=== PATIENT | female | born 1985 | race Caucasian/White ===

== ENCOUNTER 2018-03-04 10:13 | Emergency (ER) | payer OTHER ==
[2018-03-04] MEDS ORDERED: NA CHLORIDE 0.9% 1,000 ML ONE (11:02)
[2018-03-04] MEDS ORDERED: ONDANSETRON 4 MG/2 ML VIAL ONE ×2 (11:02→13:47)
[2018-03-04 11:17] LABS: Absolute Lymphocytes (CBC) 1.3 K/uL (0.7-4.9); Absolute Monocytes 0.3 K/uL (0.1-1.3); Absolute Neutrophil 5.2 K/uL (1.8-8.0); Basophils % 2.3 % (0-1.3); Hematocrit 43.1 % (36.0-45.0); MCH 29.4 pg (27.0-35.0); MCV 83.8 fL (80-100); MPV 8.6 fL (7.6-11.3); Monocytes % 4.2 % (3.3-12.3); RBC Red Blood Cell Count 5.15 M/uL (3.86-4.86)
[2018-03-04 11:22] LABS: ALT/SGPT 41 U/L (12-78); AST/SGOT 17 U/L (15-37); Albumin 4.1 g/dL (3.4-5.0); Alkaline Phosphatase 84 U/L (45-117); BUN Blood Urea Nitrogen 12 mg/dL (7-18); Bicarbonate 22 mmol/L (21-32); Bilirubin Direct < 0.1 mg/dL (0-0.2); Bilirubin Total 0.3 mg/dL (0.2-1.0); Glucose Level 109 mg/dL (74-106); Lipase 201 U/L (73-393); Potassium 4.1 mmol/L (3.5-5.1); Protein, Total 7.8 g/dL (6.4-8.2); Sodium Level 140 mmol/L (136-145)
[2018-03-04 12:32] LABS: Urine Blood NEGATIVE (NEG); Urine Glucose NEGATIVE (NEG); Urine Protein NEGATIVE (NEG)
[2018-03-04] MEDS ORDERED: MORPHINE 4 MG/ML SYR ONE (12:32)
--- NOTE | 2018-03-04 13:18 | RAD REPORT ---
EXAM DESCRIPTION: CT - Abdomen Pelvis W Contrast - 03/04/2018 1:01 pm CLINICAL HISTORY: Right-sided abdominal pain COMPARISON: June 2017 TECHNIQUE: Biphasic, helical CT imaging of the abdomen and pelvis was performed following 100 ml non -ionic IV contrast. No oral contrast administered. All CT scans are performed using dose optimization technique as appropriate and may include automated exposure control or mA/KV adjustment according to patient size. FINDINGS: No suspicious findings in the lung bases. Liver shows diffuse fatty infiltration pattern. No focal liver lesions seen. Spleen and pancreas with out acute finding. Gallbladder and biliary tree are also without suspicious finding. Symmetric renal function is seen with no hydronephrosis or suspicious renal mass. No pyelonephritis o r acute renal parenchymal process. No urinary bladder abnormality. Uterus and ovaries show no suspici ous findings. Cysts are present in both ovaries. Largest cyst is on the right measuring 3.[address] rupture or hemorrhage findings. No dilated bowel loops or bowel wall thickening. No appendicitis. Fluid-filled small bowel loops and fluid filled colon noted likely reflecting nonspecific gastroenteritis. No free air, free fluid or in flammatory stranding. No hernia, mass or bulky lymphadenopathy. No adrenal abnormality. No suspicious bony findings. IMPRESSION: Large and small bowel pattern suggests a nonspecific enteritis. No obstruction, appendic itis, free air or surgically emergent finding. No acute or CUSTOMER EXPERIENCE STRATEGIST process. A right ovarian cyst is present 3.3 cm on the right. No cyst rupture or h emorrhage.
[2018-03-04] MEDS ORDERED: DICYCLOMINE HCL 10 MG CAP ONE (13:47)
[2018-03-04] MEDS ORDERED: DICYCLOMINE HCL 20 MG/2 ML AMP IM ONE (14:01)
[2018-03-04] MEDS ORDERED: PROMETHAZINE 25 MG/ML VIAL ONE (14:42)
[2018-03-04] MEDS ORDERED: FENTANYL CITR 100 MCG/2 ML ONE (14:43)
--- NOTE | 2018-03-04 14:56 | ER ---
Nurse's Notes [facility] Name: Leonela Garcia Age: 32 yrs Sex: Female : 1985 Arrival Date: 03/04/2018 Time: 10:17 Bed 14 Private MD: out of town, doctor Diagnosis: Noninfective gastroenteritis and colitis, unspecified Presentation: 03/04 10:32 Presenting complaint: Patient states: n/v/d since this morning. c/o indigestion. sv Transition of care: patient was not received from another setting of care. Onset of symptoms was March 04, 2018. Care prior to arrival: None. 10:32 Method Of Arrival: Ambulatory sv 10:32 Acuity: LENA 3 sv 10:45 Risk Assessment: Do you want to hurt yourself or someone else? Patient reports no em desire to harm self or others. Initial Sepsis Screen: Does the patient meet any 2 criteria? No. Patient's initial sepsis screen is negative. Does the patient have a suspected source of infection? No. Patient's initial sepsis screen is negative. Triage Assessment: 10:32 General: Appears uncomfortable, well developed, Behavior is cooperative. Pain: sv Complains of pain in abdomen Pain currently is 7 out of 10 on a pain scale. Quality of pain is described as crampy, Pain began this morning Is intermittent. Neuro: Level of Consciousness is awake, alert, obeys commands, Oriented to person, place, time, situation, Moves all extremities. Full function Gait is steady, Speech is normal. Respiratory: Respiratory effort is even, unlabored, Respiratory pattern is regular, symmetrical. GI: Reports cramping, diarrhea, intolerance of food, nausea, vomiting. 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 - Social history:: Smoking status: Patient/guardian denies using tobacco. - Ebola Screening: : No symptoms or risks identified at this time. Screenin:45 Abuse screen: Denies threats or abuse. Nutritional screening: No deficits noted. em Tuberculosis screening: No symptoms or risk factors identified. Fall Risk None identified. Assessment: 10:45 General: Appears in no apparent distress. uncomfortable, Behavior is calm, cooperative. em Pain: Complains of pain in right upper quadrant and left upper quadrant Pain currently is 7 out of 10 on a pain scale. Quality of pain is described as crampy, Pain began 2 hours ago. Neuro: Level of Consciousness is awake, alert, obeys commands, Oriented to person, place, time, situation. Cardiovascular: Capillary refill < 3 seconds Patient's skin is warm and dry. Respiratory: Airway is patent Respiratory effort is even, unlabored, Respiratory pattern is regular, symmetrical. GI: Abdomen is round non-distended, Bowel sounds present X 4 quads. Abd is soft X 4 quads Abdomen is tender to palpation in right upper quadrant and left upper quadrant. : Urine is clear. EENT: No signs and/or symptoms were reported regarding the EENT system. Derm: Skin is intact, Skin is pink, warm \T\ dry. Musculoskeletal: Capillary refill < 3 seconds, Range of motion: intact in all extremities. 10:45 Reassessment: I agree with assessment completed by Tulio Lloyd LVN . GI: Reports aa5 diarrhea, nausea, vomiting. 12:17 Reassessment: Patient appears in no apparent distress at this time. Patient and/or em family updated on plan of care and expected duration. Pain level reassessed. Patient is alert, oriented x 3, equal unlabored respirations, skin warm/dry/pink. Patient states symptoms have improved. 13:20 Reassessment: Patient appears in no apparent distress at this time. Patient and/or em family updated on plan of care and expected duration. Pain level reassessed. Patient is alert, oriented x 3, equal unlabored respirations, skin warm/dry/pink. pt c/o nausea, provider notified, new medication orders received. 14:25 Reassessment: Patient appears in no apparent distress at this time. Patient and/or em family updated on plan of care and expected duration. Pain level reassessed. Patient is alert, oriented x 3, equal unlabored respirations, skin warm/dry/pink. pt still appears uncomfortable, pt c/o nausea and pain, rates pain 7/10, provider notified. 15:21 Reassessment: Patient appears in no apparent distress at this time. Patient and/or em family updated on plan of care and expected duration. Pain level reassessed. Patient is alert, oriented x 3, equal unlabored respirations, skin warm/dry/pink. pt refused pain medication, rates pain 0/10 Patient states feeling better. Patient states symptoms have improved. Vital Signs: 10:32 BP 120 / 71; Pulse 86; Resp 22; Temp 96; Pulse Ox 96% ; Weight 90.72 kg; Height 5 ft. 5 sv in. (165.10 cm); Pain 7/10; 11:30 BP 109 / 87; Pulse 72; Resp 16; Pulse Ox 99% on R/A; em 12:16 Temp 97.4(O); mh5 12:17 BP 121 / 83; Pulse 72; Resp 18; Temp 97.8(O); Pulse Ox 100% ; mh5 13:30 BP 131 / 96; Pulse 70; Resp 18; Pulse Ox 99% on R/A; em 14:36 BP 116 / 87; Pulse 76; Resp 99; Pulse Ox 100% on R/A; Pain 7/10; em 15:17 BP 110 / 73; Pulse 81; Resp 17; Pulse Ox 99% on R/A; Pain 0/10; em 10:32 Body Mass Index 33.28 (90.72 kg, 165.10 cm) sv ED Course: 10:17 Patient arrived in ED. mr 10:18 out of town, doctor is Private Physician. mr 10:32 Triage completed. sv 10:34 Arm band placed on. sv 10:35 Tulio Lloyd LVN is Primary Nurse. em 10:35 Anthony De Anda PA is PHCP. jmm 10:35 Saulo Rodriguez MD is Attending Physician. jmm 10:45 Patient has correct armband on for positive identification. Placed in gown. Bed in low em position. Call light in reach. Side rails up X2. Adult w/ patient. 11:00 Initial lab(s) drawn, by me, sent to lab. Inserted saline lock: 20 gauge in right em antecubital area, using aseptic technique. Blood collected. 12:01 Urine collected: clean catch specimen, clear. em 13:00 CT completed. Patient moved to CT via wheelchair. Patient moved back from CT. cw1 13:01 CT Abd/Pelvis - W/Contrast In Process Unspecified. EDMS 15:21 No provider procedures requiring assistance completed. IV discontinued, intact, em bleeding controlled, No redness/swelling at site. Pressure dressing applied. Administered Medications: 10:54 Drug: Zofran 4 mg Route: IVP; Site: right antecubital; aa5 11:58 Follow up: Response: No adverse reaction; Nausea is decreased em 10:55 Drug: NS 0.9% 1000 ml Route: IV; Rate: 1 bolus; Site: right antecubital; em 11:59 Follow up: IV Status: Completed infusion; IV Intake: 1000ml em 12:32 Drug: morphine 4 mg Route: IVP; Site: right antecubital; aa5 13:45 Follow up: Response: No adverse reaction; Pain is decreased em 13:45 Drug: Zofran 4 mg Route: IVP; Site: right antecubital; em 14:27 Follow up: Response: No adverse reaction; Nausea unchanged em 14:01 Not Given (Other Intervention Used): Bentyl 20 mg PO once em 14:01 Drug: Bentyl 20 mg Route: IM; Site: left deltoid; em 14:27 Follow up: Response: No adverse reaction; Pain is unchanged, physician notified em 14:44 Drug: Promethazine 12.5 mg Route: IVP; Site: right antecubital; aa5 15:26 Follow up: Response: No adverse reaction; Marked relief of symptoms em 15:26 Not Given (Patient Refused): fentaNYL (PF) 50 mcg IVP once em Intake: 11:59 IV: 1000ml; Total: 1000ml. em Outcome: 14:55 Discharge ordered by MD. daniel 15:21 Discharged to home ambulatory, with family. em 15:21 Condition: good 15:21 Discharge instructions given to patient, family, Instructed on discharge instructions, follow up and referral plans. medication usage, Demonstrated understanding of instructions, follow-up care, medications, Prescriptions given X 3. 15:34 Patient left the ED. em Signatures: Dispatcher [employer] Rachele White, Anthony Griffin RN, PA PA jmm Rivera, Mary mr Gabino, Tulio, FISHER DIVER NET FISHER DIVER NET em Sylvie Thakur RN RN Yael Nuñez1 Lashawn Worley 5 Corrections: (The following items were deleted from the chart) 12:20 12:17 Temp 97.8F Oral; em mh5
--- NOTE | 2018-03-04 14:56 | EDPHYS ---
Physician Documentation [facility] Name: Leonela Garcia Age: 32 yrs Sex: Female : 1985 Arrival Date: 03/04/2018 Time: 10:17 Bed 14 Private MD: out of town, doctor ED Physician Saulo Rodriguez HPI: 03/04 10:36 This 32 yrs old Female presents to ER via Ambulatory with complaints of jmm Abdominal Pain, Vomiting/Diarrhea. 10:36 The patient presents with abdominal pain in the epigastric area. Onset: The jmm symptoms/episode began/occurred gradually. Associated signs and symptoms: Pertinent positives: diarrhea, vomiting. This is a 32 year old female with a history of ovarian cysts that presents to the ED with vomiting and diarrhea beginning approx 1 day ago. States her children bj sick with cough and congestion. 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 denies recent travel, denies recent abx use. . 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 - Social history:: Smoking status: Patient/guardian denies using tobacco. - Ebola Screening: : No symptoms or risks identified at this time. ROS: 10:36 Constitutional: Negative for fever, chills, and weight loss, Eyes: Negative for injury, jmm pain, redness, and discharge, ENT: Negative for injury, pain, and discharge, Cardiovascular: Negative for chest pain, palpitations, and edema, Respiratory: Negative for shortness of breath, cough, wheezing, and pleuritic chest pain. 10:36 : Negative for injury, bleeding, discharge, and swelling, MS/Extremity: Negative for injury and deformity, Skin: Negative for injury, rash, and discoloration, Neuro: Negative for headache, weakness, numbness, tingling, and seizure. 10:36 Abdomen/GI: Positive for abdominal pain, nausea and vomiting, diarrhea. 10:36 All other systems are negative. Exam: 10:36 Constitutional: The patient appears in no acute distress, alert, awake. jmm 11:08 Constitutional: This is a well developed, well nourished patient who is awake, alert, jmm and in no acute distress. Head/Face: atraumatic. Eyes: EOMI, no conjunctival erythema appreciated ENT: Moist Mucus Membranes Neck: Trachea midline, Supple Chest/axilla: Normal chest wall appearance and motion. Cardiovascular: Regular rate and rhythm. No edema appreciated Respiratory: Normal respirations, no respiratory distress appreciated 11:08 Back: Normal ROM Skin: General appearance color normal MS/ Extremity: Moves all extremities, no obvious deformities appreciated, no edema noted to the lower extremities Neuro: Awake and alert, normal gait Psych: Behavior is normal, Mood is normal, Patient is cooperative and pleasant 11:08 Abdomen/GI: Inspection: abdomen appears normal, Bowel sounds: normal, Palpation: soft, mild abdominal tenderness, in the right upper quadrant and left upper quadrant. 11:08 Back: ROM is normal. Vital Signs: 10:32 BP 120 / 71; Pulse 86; Resp 22; Temp 96; Pulse Ox 96% ; Weight 90.72 kg; Height 5 ft. 5 sv in. (165.10 cm); Pain 7/10; 11:30 BP 109 / 87; Pulse 72; Resp 16; Pulse Ox 99% on R/A; em 12:16 Temp 97.4(O); mh5 12:17 BP 121 / 83; Pulse 72; Resp 18; Temp 97.8(O); Pulse Ox 100% ; mh5 13:30 BP 131 / 96; Pulse 70; Resp 18; Pulse Ox 99% on R/A; em 14:36 BP 116 / 87; Pulse 76; Resp 99; Pulse Ox 100% on R/A; Pain 7/10; em 15:17 BP 110 / 73; Pulse 81; Resp 17; Pulse Ox 99% on R/A; Pain 0/10; em 10:32 Body Mass Index 33.28 (90.72 kg, 165.10 cm) sv MDM: 10:36 Patient medically screened. [facility] 14:53 Data reviewed: vital signs, nurses notes. Counseling: I had a detailed discussion with maría the patient and/or guardian regarding: the historical points, exam findings, and any diagnostic results supporting the discharge/admit diagnosis, lab results, radiology results, the need for outpatient follow up, to return to the emergency department if symptoms worsen or persist or if there are any questions or concerns that arise at home. Response to treatment: the patient's symptoms have markedly improved after treatment. 03/04 10:46 Order name: Basic Metabolic Panel; Complete Time: 11:29 jmm 03/04 10:46 Order name: CBC with Diff; Complete Time: 11:29 [facility] 03/04 10:46 Order name: Creatinine for Radiology; Complete Time: 11:20 [facility] 03/04 10:46 Order name: Hepatic Function; Complete Time: 11:29 [facility] 03/04 10:46 Order name: Lipase; Complete Time: 11:29 [facility] 03/04 11:58 Order name: Urine Dipstick--Ancillary (enter results) 03/04 11:58 Order name: Urine --Ancillary (enter results) 03/04 12:20 Order name: CT Abd/Pelvis - W/Contrast; Complete Time: 13:28 [facility] 03/04 10:46 Order name: IV Saline Lock; Complete Time: 10:53 jm 03/04 10:46 Order name: Labs collected and sent; Complete Time: 10:53 [facility] 03/04 10:46 Order name: Urine Dipstick-Ancillary (obtain specimen); Complete Time: 11:59 jm 03/04 10:46 Order name: Urine Test (obtain specimen); Complete Time: 11:59 [facility] 03/04 11:31 Order name: PO challenge; Complete Time: 11:58 jmm Administered Medications: 10:54 Drug: Zofran 4 mg Route: IVP; Site: right antecubital; aa5 11:58 Follow up: Response: No adverse reaction; Nausea is decreased em 10:55 Drug: NS 0.9% 1000 ml Route: IV; Rate: 1 bolus; Site: right antecubital; em 11:59 Follow up: IV Status: Completed infusion; IV Intake: 1000ml em 12:32 Drug: morphine 4 mg Route: IVP; Site: right antecubital; aa5 13:45 Follow up: Response: No adverse reaction; Pain is decreased em 13:45 Drug: Zofran 4 mg Route: IVP; Site: right antecubital; em 14:27 Follow up: Response: No adverse reaction; Nausea unchanged em 14:01 Not Given (Other Intervention Used): Bentyl 20 mg PO once em 14:01 Drug: Bentyl 20 mg Route: IM; Site: left deltoid; em 14:27 Follow up: Response: No adverse reaction; Pain is unchanged, physician notified em 14:44 Drug: Promethazine 12.5 mg Route: IVP; Site: right antecubital; aa5 15:26 Follow up: Response: No adverse reaction; Marked relief of symptoms em 15:26 Not Given (Patient Refused): fentaNYL (PF) 50 mcg IVP once em Disposition: 03/05 15:21 Co-signature as Attending Physician, Saulo Rodriguez MD. Disposition: 03/04/18 14:55 Discharged to Home. Impression: Noninfective gastroenteritis and colitis, unspecified. - Condition is Stable. - Discharge Instructions: Viral Gastroenteritis, Adult. - Prescriptions for Zofran ODT 4 mg Oral tablet,disintegrating - place 1 tablet by TRANSLINGUAL route every 4-6 hours; 20 tablet. Bentyl 20 mg Oral Tablet - take 2 tablet by ORAL route every 6 hours As needed; 40 tablet. Ultracet 37.5- 325 mg Oral Tablet - take 1 tablet by ORAL route every 6 hours - for up to 5 days; do not exceed 8 tablets per day.; 20 tablet. - Work release form, Medication Reconciliation Form, Thank You Letter, Antibiotic Education, Prescription Opioid Use, Family Work Release form. - Follow up: Private Physician; When: 2 - 3 days; Reason: Recheck today's complaints, Continuance of care, Re-evaluation by your physician. Signatures: Dispatcher [employer] Rachele White RN RN Anthony James PA PA [facility] Tulio Lloyd, POWER GENERATING PLANT OPERATOR POWER GENERATING PLANT OPERATOR Sylvie Thakur RN RN aa5 Starr, Gregory, MD MD Corrections: (The following items were deleted from the chart) 03/04 15:34 14:55 03/04/2018 14:55 Discharged to Home. Impression: Noninfective gastroenteritis and em colitis, unspecified. Condition is Stable. Forms are Medication Reconciliation Form, Thank You Letter, Antibiotic Education, Prescription Opioid Use. Follow up: Private Physician; When: 2 - 3 days; Reason: Recheck today's complaints, Continuance of care, Re-evaluation by your physician. maría
== END 2018-03-04 15:34 | disposition home or self-care (01) ==
LOC: ER 10:13
DX: K52.9 Noninfective gastroenteritis and colitis, unspecified (principal)
CPT/HCPCS: 36415; 74177; 80048; 80076; 81003; 81025; 83690; 85025; 96361; 96372; 96374; 96375; 99284; J0500; J2405; J2550; J3010; J7030; Q9967